=== PATIENT | male | born 1980 | race Caucasian/White ===

== ENCOUNTER 2019-05-05 23:01 | Emergency (ER) | payer BC ==
[~2019-05-05] VITALS: Ht 185.4 cm; Wt 88.5 kg
[2019-05-05 23:10] VITALS: BP 150/99
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
[2019-05-06] MEDS ORDERED: ROBAXIN-750750 MG PO
[2019-05-06] MEDS ORDERED: IBUPROFEN600 MG ORAL
[2019-05-06] MEDS ORDERED: Methocarbamol 750mg tab ORAL ONE
[2019-05-06] MEDS ORDERED: LIDODERM700 M1 TOPIC
[2019-05-06 00:41] VITALS: BP 150/99
--- NOTE | 2019-05-06 00:41 | NUR ---
ED Nurse Note: Pt cleared by health care Provider for discharge. DC instructions/prescription was given and explained to pt and verbalized understanding of teachings. All medical deviecs such as ID band removed. Pt is AAO x4, ambulatory and left with all personal belongings.
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
== END 2019-05-06 00:42 | disposition home or self-care (01) ==
LOC: EDBD 23:01 → EMR 23:34
DX: S40.011A Contusion of right shoulder, initial encounter (principal); V43.62XA Car passenger injured in collision with other type car in traffic accident, initial encounter; Y92.410 Unspecified street and highway as the place of occurrence of the external cause; Z88.0 Allergy status to penicillin
CPT/HCPCS: 99283